=== PATIENT | male | born 1955 | race Caucasian/White ===

== ENCOUNTER 2022-10-05 13:13 | Emergency (ER) | payer OTHER ==
[2022-10-05 15:24] VITALS: TEMP 98.6
[2022-10-05] MEDS ORDERED: NEOMYCIN/BACITRACIN/POLYMYXIN B OINTMENT PACKET TP ONE ×2 (16:00)
[2022-10-05 18:00] VITALS: BP 123/98; PULSE 74; RESP 17
== END 2022-10-05 17:22 | disposition home or self-care (01) ==
LOC: EMS 13:27
DX: S80.212A Abrasion, left knee, initial encounter (principal); S41.111A Laceration without foreign body of right upper arm, initial encounter; I10 Essential (primary) hypertension; E78.00 Pure hypercholesterolemia, unspecified; X58.XXXA Exposure to other specified factors, initial encounter; Y93.89 Activity, other specified; Y92.89 Other specified places as the place of occurrence of the external cause; Y99.8 Other external cause status
CPT/HCPCS: 99283